=== PATIENT | male | born 1965 | race African-American/Black ===

== ENCOUNTER 2018-03-17 17:31 | Observation (INO) | payer SELFPAY ==
[~2018-03-17] VITALS: Ht 188 cm; Wt 98.1 kg
[2018-03-17 18:26] LABS: HEMOGLOBIN 13.3 G/DL (12.5-16.6); MCH 30.6 PG (29.0-34.0); MCHC 34.1 G/DL (30.0-36.0); MCV 89.7 FL (86-99); PLATELET COUNT 239 K/uL (156-360); RBC DIS.WIDTH-CV 12.1 % (11.8-14.6); RBC DIS.WIDTH-SD 39.9 % (39-53); RED BLOOD COUNT 4.35 M/uL (4.00-5.50); WHITE BLOOD COUNT 5.3 K/uL (4.1-10.2)
[2018-03-17 18:34] LABS: ALBUMIN 3.8 g/dL (3.2-4.8)
[2018-03-17 18:35] LABS: CHLORIDE 108 mEq/L (99-109); POTASSIUM 3.8 mEq/L (3.7-5.4); SODIUM 141 mEq/L (136-147)
[2018-03-17 18:37] LABS: GLUCOSE 97 mg/dL (70-99); TOTAL PROTEIN 6.7 g/dL (6.4-8.3)
[2018-03-17 18:39] LABS: TOTAL BILIRUBIN 0.3 mg/dL (0.0-1.0)
[2018-03-17 18:40] LABS: ALKALINE PHOSPHATASE 64 IU/L (3-129)
[2018-03-17 18:41] LABS: CREATININE 0.9 mg/dL (0.6-1.3)
[2018-03-17 18:42] LABS: AST (GOT) 23 IU/L (2-34); UREA NITROGEN (BUN) 12 mg/dL (9-23)
[2018-03-17 18:43] LABS: ALT (GPT) 20 IU/L (3-49); GFR ESTIMATE (CALCULATED) > 59 mL/min/ (58.99-99999)
[2018-03-17 18:47] LABS: TROP-I INTERPRETATION NEGATIVE; TROPONIN-I < 0.01 ng/mL (0.0-0.30)
[2018-03-17] MEDS ORDERED: LISINOPRIL10 MG PO (21:01)
[2018-03-17] MEDS ORDERED: AMLODIPINE BESY10 MG PO (21:02)
[2018-03-17] MEDS ORDERED: APRESOLINE50 MG PO (21:02)
[2018-03-17] MEDS ORDERED: BAYER CHEWABLE81 MG PO (21:03)
[2018-03-17 23:18] VITALS: BP 151/89
[2018-03-18 03:20] LABS: HEMOGLOBIN 13.5 G/DL (12.5-16.6); MCH 30.5 PG (29.0-34.0); MCHC 33.8 G/DL (30.0-36.0); MCV 90.5 FL (86-99); PLATELET COUNT 242 K/uL (156-360); RED BLOOD COUNT 4.42 M/uL (4.00-5.50); WHITE BLOOD COUNT 5.4 K/uL (4.1-10.2)
[2018-03-18 03:32] LABS: ALBUMIN 3.6 g/dL (3.2-4.8); CHLORIDE 111 mEq/L (99-109); POTASSIUM 4.4 mEq/L (3.7-5.4); SODIUM 141 mEq/L (136-147)
[2018-03-18 03:34] LABS: GLUCOSE 109 mg/dL (70-99)
[2018-03-18 03:38] LABS: ALKALINE PHOSPHATASE 59 IU/L (3-129); CREATININE 0.9 mg/dL (0.6-1.3); GFR ESTIMATE (CALCULATED) > 59 mL/min/ (58.99-99999)
[2018-03-18 03:39] LABS: TROP-I INTERPRETATION NEGATIVE; TROPONIN-I < 0.01 ng/mL (0.0-0.30); UREA NITROGEN (BUN) 11 mg/dL (9-23)
[2018-03-18 03:40] LABS: AST (GOT) 20 IU/L (2-34)
[2018-03-18 03:41] LABS: ALT (GPT) 18 IU/L (3-49)
[2018-03-18 03:43] LABS: TOTAL BILIRUBIN 0.4 mg/dL (0.0-1.0)
[2018-03-18 04:00] VITALS: BP 140/89
[2018-03-18 04:18] LABS: HDL CHOLESTEROL 55 MG/DL (Desirable>=40); LDL CHOLESTEROL 90 mg/dL (Desirable<100); NON-HDL CHOLESTEROL 100 mg/dL (Desirable<160); TOTAL CHOLESTEROL 155 mg/dL (Desirable<200); TRIGLYCERIDES 52 MG/DL (Normal: <150)
[2018-03-18 07:21] VITALS: BP 143/82
[2018-03-18 09:04] LABS: TROP-I INTERPRETATION NEGATIVE; TROPONIN-I < 0.01 ng/mL (0.0-0.30)
[2018-03-18] MEDS ORDERED: FAMOTIDINE20 MG PO (09:29)
[2018-03-18 12:59] VITALS: BP 170/82
[2018-03-18 16:00] VITALS: BP 142/76
[2018-03-19 00:04] VITALS: BP 155/84
[2018-03-19 03:43] LABS: TROP-I INTERPRETATION NEGATIVE; TROPONIN-I < 0.01 ng/mL (0.0-0.30)
[2018-03-19 04:14] VITALS: BP 146/86
[2018-03-19 07:53] VITALS: BP 145/84
[2018-03-19] MEDS ORDERED: FAMOTIDINE20 MG PO (11:55)
== END 2018-03-19 13:47 | disposition home or self-care (01) ==
LOC: EME 17:31 → EDOF 20:28 → 4SOUTH 20:28 → ENRESERV 20:29 → 4SOUTH 21:45
PROVIDERS: Nurse Practitioner Family; Student in an Organized Health Care Education/Training Program
DX: R07.9 Chest pain, unspecified (principal); I10 Essential (primary) hypertension; J44.9 Chronic obstructive pulmonary disease, unspecified; F14.10 Cocaine abuse, uncomplicated; I44.4 Left anterior fascicular block; F17.200 Nicotine dependence, unspecified, uncomplicated; T46.5X6A Underdosing of other antihypertensive drugs, initial encounter; I25.10 Atherosclerotic heart disease of native coronary artery without angina pectoris; Z86.718 Personal history of other venous thrombosis and embolism; Z79.82 Long term (current) use of aspirin; Z84.1 Family history of disorders of kidney and ureter; K21.9 Gastro-esophageal reflux disease without esophagitis; E78.5 Hyperlipidemia, unspecified; M25.562 Pain in left knee; Z82.49 Family history of ischemic heart disease and other diseases of the circulatory system; Z83.3 Family history of diabetes mellitus
CPT/HCPCS: 71046; 71275; 80053; 80061; 84484; 85027; 93005; 93017; 93971; 99281; 99285; G0378; J1650; J2270; J7030